=== PATIENT | female | born 1965 | race Caucasian/White ===

== ENCOUNTER → 2024-07-15 15:38 | Outpatient (CLI) | payer BC, SELFPAY ==
--- NOTE | 2024-07-15 15:39 | DI.MG.S_ITS ---
BILATERAL DIGITAL SCREENING MAMMOGRAM 3D/2D WITH CAD: 07/15/2024 CLINICAL: Routine screening. Family history of breast cancer. Comparison is made to exam dated: 11/23/2022 mammogram - outside location. There are scattered areas of fibroglandular density (category b / 25%-50% glandular tissue). Current study was also evaluated with a Computer Aided Detection (CAD) system. There is a possible irregular focal asymmetry in the right breast at 8 o'clock anterior depth. There is an oval focal asymmetry in the left breast at 12 o'clock middle depth. No other significant masses or calcifications are seen in either breast. IMPRESSION: INCOMPLETE: NEED ADDITIONAL IMAGING EVALUATION The possible irregular focal asymmetry in the right breast at 8 o'clock anterior depth is indeterminate. A diagnostic mammogram and ultrasound is recommended. The oval focal asymmetry in the left breast at 12 o'clock middle depth resembles a cyst or a lymph node and is indeterminate. A diagnostic mammogram and ultrasound is recommended. Based on Tyrer-Cuzick model (a risk assessment model), the patient's lifetime risk is 20.8% and her 10 year risk is 7.3%. If a patient has an elevated risk, a more comprehensive evaluation should be considered and/or a referral to a genetic counselor. The [place] [employer], [place] [employer], and NCCN Guidelines advise the consideration of Breast MRI as an adjunct to screening mammography in patients whose Lifetime risk to develop breast cancer is 20% or higher. This exam was interpreted at Station ID: [id number]. NOTE: For mammograms, a report in lay terms will be sent to the patient. Approximately 15% of breast malignancies will not be visualized mammographically. In the management of a palpable breast mass, a negative mammogram must not discourage biopsy of a clinically suspicious lesion. Electronically Signed By: Wali grubbs/bharat:07/16/2024 13:16:37 letter sent: Additional Imaging Needed ACR BI-RADS Category 0: Incomplete: Need Additional Imaging Evaluation
== END ==
LOC: MAMMO 15:39
PROVIDERS: Family Provider Family Medicine; PCP Family Medicine; Referring Provider Family Medicine; Visit Provider Family Medicine
DX: Z12.31 Encounter for screening mammogram for malignant neoplasm of breast (principal); Z80.3 Family history of malignant neoplasm of breast; N64.89 Other specified disorders of breast
CPT/HCPCS: 77063; 77067

== ENCOUNTER → 2024-07-25 09:56 | Outpatient (CLI) | payer BC, SELFPAY ==
[2024-07-25 10:33] LABS: Add Manual Diff / Slide Review NO; Basophils Absolute Auto 100 /uL (0-100); Basophils Percent Auto 1.4 % (0-2); Eosinophils Absolute Auto 200 /uL (0-450); Eosinophils Percent Auto 2.3 % (2-4); Hematocrit 44.2 % (36-46); Hemoglobin 15.2 g/dL (12.0-16.0); Lymphocytes Absolute Auto 2600 /uL (1100-4500); Lymphocytes Percent Auto 31.7 % (25-40); Mean Corpuscular HGB Conc 34.4 % (30-36); Mean Corpuscular Hemoglobin 30.3 PG (26-34); Mean Corpuscular Volume 88.1 fL (80-100); Monocytes Absolute Auto 300 /uL (0-900); Monocytes Percent Auto 4.2 % (3-14); Neutrophils Absolute Auto 4900 /uL (1500-7000); Neutrophils Percent Auto 60.4 % (50-75); Platelet Count 434 X10^3/uL (150-400); Red Blood Cell Count 5.02 X10^6/uL (4.0-5.2); Red Cell Distribution Width 13.1 % (11.6-14.8); White Blood Cell Count 8.1 X10^3/uL (4.5-11.0)
[2024-07-25 10:44] LABS: Hemoglobin A1C% w Est Avg Glu 5.1 % (4.0-6.0)
[2024-07-25 11:02] LABS: Alanine Aminotransferase 78 IU/L (<35); Albumin 4.7 g/dL (3.5-5.0); Albumin Globulin Ratio 1.7 (1.0-2.8); Alkaline Phosphatase 73 U/L (38-126); Aspartate Aminotransferase 49 IU/L (14-36); BUN Creatinine Ratio 16.1 (6-22); Bilirubin Total 0.6 mg/dL (0.2-1.3); Blood Urea Nitrogen 14 mg/dL (7-17); Calcium 9.7 mg/dL (8.4-10.2); Carbon Dioxide 26 mmol/L (22-32); Chloride 105 mmol/L (98-107); Cholesterol 190 mg/dL (140-199); Estimated Glomerular Filt Rate > 60 mL/min (>60); Globulin 2.8 g/dL (1.7-4.1); Glucose 96 mg/dL (70-100); HDL Cholesterol 44 mg/dL (40-60); HEMOLYSIS < 15 (0-50); LDL Cholesterol Calculated 126 mg/dL (<100); Potassium 4.7 mmol/L (3.4-5.1); Sodium 138 mmol/L (137-145); Total Protein 7.5 g/dL (6.3-8.2); Triglycerides 99 mg/dL (35-150)
== END ==
LOC: LAB 09:57
PROVIDERS: Family Provider Family Medicine; PCP Family Medicine; Referring Provider Family Medicine; Visit Provider Family Medicine
DX: D75.839 Thrombocytosis, unspecified (principal); K75.81 Nonalcoholic steatohepatitis (NASH); Z13.220 Encounter for screening for lipoid disorders
CPT/HCPCS: 36415; 80053; 80061; 83036; 85025

== ENCOUNTER 2024-08-01 11:30 | Outpatient (RCR) | payer BC, SELFPAY ==
--- NOTE | 2024-07-08 14:27 | PT.OIE ---
Current Diagnoses Achilles tendinitis, unspecified leg (07/08/24) Past Medical History (Last Updated 05/11/24 @ 18:50 by Lizeth Anna) Diverticular disease (~2016) Family history of breast cancer Menopausal symptom ESCOBAR (nonalcoholic steatohepatitis) (~2016) Obesity (BMI 30.0-34.9) PCOS (polycystic ovarian syndrome) (~1986) Skin cancer (~2022) Thrombocytosis Weight loss counseling, encounter for Past Surgical History (Last Updated 05/11/24 @ 18:50 by Lizeth Anna) Anesthesia History of section (~1994) History of cholecystectomy (~2022) S/P ACL surgery Visit Care Team Role Provider Type Yesenia Waldrop MD Attending Provider Physician Family Provider Primary Care Provider Referring Provider Specialty: Family Practice ZIPPER TRIMMER Address: [address] [place] [address], [facility] Fax: Email: [email or web address] Physical Therapy Initial Evaluation PT-OP-A Visit Information Start: 07/07/24 17:10 Freq: Status: Active Protocol: Document 07/08/24 14:27 [facility]AK (Rec: 07/08/24 15:12 [facility] [id number]) Out-Patient Physical Therapy Visit Information Visit Information Visit Type Initial Evaluation Visit Start Time 14:28 Visit Stop Time 15:20 Visit Number 1 Evaluation Information Evaluation Date 07/08/24 PT-OP-B Current Condition Start: 07/07/24 17:10 Freq: Status: Active Protocol: Document 07/08/24 14:27 [facility]AK (Rec: 07/08/24 15:12 [facility] [id number]) Current Condition History of Current Condition Onset Date 6 months Current Complaints left ankle pain. History of Current Condition gradual onset ankle pain, ok for regular walking though sore. Nagging chronic soreness. HIstory of 5 knee surgeries left, one right. Current activity level; plays golf but has to have ankle brace, now can't play pickle ball, sometimes uses night splint which she previously used for plantar fascitis due to achilles feeling tight. With menopause got frozen shoulder, plantar fascitis. Taking HRT, Metformin for PCOS . Occasionally feels like has band around ankle, though pain usually base of achilles tendon and on heel. Stretches at times, occasionally ices, has not used KT tape. No regular exercise program. Wears good shoes; Barrington's, [place], no orthotics. Prior Treatments and Tests none Treatment Goals Patient/Caregiver Goals Decrease pain, take walks without pain, be able to move quickly and resume pickleball Current Functional Impairments (Reported) Functional Limitations- ADL's painful Functional Limitations- Mobility/Gait painful Functional Limitations- Work/School retired Functional Limitations- Recreation/ cooking; increases pain Hobbies PT-OP-C Subjective Start: 07/07/24 17:10 Freq: Status: Active Protocol: Document 07/08/24 14:27 [facility] (Rec: 07/10/24 17:38 [facility] [id number]) Patient Questionnaires Lower Extremity Functional Scale LEFS Score 1 OP-PT Pain Assessment Pain Assessment Grid Paper Pain Assessment Grid Completed Yes Location left achilles Intensity 8 PT-OP-D Balance Start: 07/07/24 17:10 Freq: Status: Active Protocol: Document 07/08/24 14:27 [facility] (Rec: 07/10/24 17:38 [facility] [id number]) Balance Tests Single Limb Standing Single Limb- Right 20 Single Limb- Left unable PT-OP-G Mobility & Gait Start: 07/07/24 17:10 Freq: Status: Active Protocol: Document 07/08/24 14:27 [facility] (Rec: 07/10/24 17:38 [facility] [id number]) OP Gait Assessment Gait Gait Assistance Required: Independent Assistive Devices Assistive Device None Gait Deviations General Gait Pattern Antalgic PT-OP-H Neuro Start: 07/07/24 17:10 Freq: Status: Active Protocol: Document 07/08/24 14:27 [facility] (Rec: 07/10/24 17:38 [facility] [id number]) Sensation Evaluation Gross Sensation Gross Sensation WNL PT-OP-J Posture/Palpation/Skin Start: 07/07/24 17:10 Freq: Status: Active Protocol: Document 07/08/24 14:27 [facility] (Rec: 07/08/24 15:12 [facility] [id number]) Posture Evaluation Position Standing Head/C-Spine Posture Side Bent Right Foot Arch (L) Low Arch Comments Posture Comments excess pron left, hallux valgus left greater than right PT-OP-K Range of Motion Start: 07/07/24 17:10 Freq: Status: Active Protocol: Document 07/08/24 14:27 [facility] (Rec: 07/10/24 17:38 [facility] [id number]) Knee Goniometric Range of Motion Knee abdirizak Knee ROM WFL Yes Ankle and Foot Goniometric Range of Motion Ankle and Foot Left Dorsiflexion with Knee Flexed 5 Dorsiflexion with Knee Extended 0 Right Active Ankle/Foot ROM WFL Yes Ankle and Foot ROM Limitations ROM Limitations Soft Tissue Tightness,Pain PT-OP-M Strength Start: 07/07/24 17:10 Freq: Status: Active Protocol: Document 07/08/24 14:27 [facility] (Rec: 07/10/24 17:38 [facility] [id number]) Knee Strength Knee Manual Muscle Testing abdirizak Flexion (S2) 5 Normal Extension (L3) 5 Normal Ankle/Foot Strength Ankle and Foot Manual Muscle Testing Left Dorsiflexion (L4) 4+ Good+ Plantarflexion (S1) 4 Good Inversion 4+ Good+ Eversion (S1) 4+ Good+ Comments pain with pf Right Dorsiflexion (L4) 5 Normal Plantarflexion (S1) 5 Normal Inversion 5 Normal Eversion (S1) 5 Normal PT-OP-Q Treatments Start: 07/07/24 17:10 Freq: Status: Active Protocol: Document 07/08/24 14:27 [facility] (Rec: 07/10/24 17:38 [facility] [id number]) Manual Therapy Treatment Taping achilles Treatment Focus pain reduction and support Type of Tape Kinesio Tape Skin Inspection intact Self-Care/Home Management Treatment Education Patient Education Home Exercise Program,Pain Management Other Education issued written HO PT-OP-R Modalities Start: 07/07/24 17:10 Freq: Status: Active Protocol: Document 07/08/24 14:27 [facility] (Rec: 07/13/24 08:42 [facility] [id number]) Hot Pack/Cold Pack Treatment Cold Pack Location achilles Patient Position Hooklying PT-OP-T Assessment and Plan Start: 07/07/24 17:10 Freq: Status: Active Protocol: Document 07/08/24 14:27 [facility] (Rec: 07/08/24 15:12 [facility] [id number]) Physical Therapy Assessment Rehab Potential Rehabilitation Potential Good Evaluation Complexity Number of Personal Factors/Comorbidities 1-2 Number of Body Systems Impaired 3 Clinical Presentation at Evaluation Evolving Impairments Impairments Activity Tolerance,Balance, Gait,Pain,Strength Goals Four Impairment lower extremity functional scale 61% Nursing Home Goal (LTG) Improve LEFS score to at least 85% to allow her to return to prior level of function LTG Duration 09/05/24 Three Impairment palpable thickening achilles midsubstance with tenderness Nursing Home Goal (LTG) Improve soft tissue mobility to WNL LTG Duration 09/05/24 Two Impairment unable to participate in usual recreational activities Nursing Home Goal (LTG) Patient able to resume playing pickleball without an increase in pain LTG Duration 09/05/24 One Impairment unable to stand or walk without left ankle pain Certified Ski Patroller Goal (LTG) Patient will be able to walk on even and uneven ground without pain in left ankle LTG Duration 09/05/24 Assessment Summary Assessment Patient presents to PT with function-limiting pain in her left ankle, specifically the mid substance of her achilles tendon with palpable thickening and tenderness. She is limited in her ability to stand and walk due to pain and she is unable to participate in her typical recreational activities which include pickleball because of pain and feeling like it's going to snap. She has tightness throughout her left calf with decreased ankle dorsiflexion ROM, pain with resisted plantarflexion. We initiated treatment with cold laser to achilles, KT tape, and ice. Instructed in HEP with handout issued. Discussed POC and patient was in agreement. Feel she will benefit from PT to decrease her pain, improve her ROM, strength, and function of her left ankle to allow her to return to her prior level of function. Physical Therapy Plan Frequency and Duration Frequency of Treatment 2x/Week Duration of treatment (weeks) 8 Plan of Care Start Date 07/08/24 Plan of Care End Date 09/05/24 Therapeutic Interventions Therapeutic Interventions Gait Training,Home Exercise Program,Joint Mobilizations, Manual Therapy,Neuromuscular Re-education,Patient/Caregiver Education,Self-Care/Home Management,Soft Tissue Mobilization,Taping, Therapeutic Activities, Therapeutic Exercises Modalities Cold Pack/Ice Massage,Electric Stimulation,Hot Packs, Infrared Therapy,Iontophoresis ,Ultrasound Next Visit Focus/Plan Next Note Type Treatment Note Next Visit Plan Start on recumbant bicycle, discuss heel lift, possible trial. Review HEP and progress as indicated. Cold laser, manual, ice.
--- NOTE | 2024-07-08 14:27 | PT.OPPOC ---
Physical, Occupational & Speech Therapy At [facility] Current Diagnoses Achilles tendinitis, unspecified leg (07/08/24) Visit Care Team Role Provider Type Yesenia Waldrop MD Attending Provider Physician Family Provider Primary Care Provider Referring Provider Specialty: Family Practice TAPE EDGE MACHINE OPERATOR Address: [address] [place] [address], [facility] Fax: Email: [email or web address] Plan Of Care PT-OP-B Current Condition Start: 07/07/24 17:10 Freq: Status: Active Protocol: Document 07/08/24 14:27 [facility]AK (Rec: 07/08/24 15:12 [facility] [id number]) Current Condition History of Current Condition Onset Date 6 months Current Complaints left ankle pain. History of Current Condition gradual onset ankle pain, ok for regular walking though sore. Nagging chronic soreness. HIstory of 5 knee surgeries left, one right. Current activity level; plays golf but has to have ankle brace, now can't play pickle ball, sometimes uses night splint which she previously used for plantar fascitis due to achilles feeling tight. With menopause got frozen shoulder, plantar fascitis. Taking HRT, Metformin for PCOS . Occasionally feels like has band around ankle, though pain usually base of achilles tendon and on heel. Stretches at times, occasionally ices, has not used KT tape. No regular exercise program. Wears good shoes; Barrington's, [place]oka, no orthotics. Prior Treatments and Tests none Treatment Goals Patient/Caregiver Goals Decrease pain, take walks without pain, be able to move quickly and resume pickleball Current Functional Impairments (Reported) Functional Limitations- ADL's painful Functional Limitations- Mobility/Gait painful Functional Limitations- Work/School retired Functional Limitations- Recreation/ cooking; increases pain Hobbies PT-OP-T Assessment and Plan Start: 07/07/24 17:10 Freq: Status: Active Protocol: Document 07/08/24 14:27 [facility]AK (Rec: 07/08/24 15:12 [facility] [id number]) Physical Therapy Assessment Rehab Potential Rehabilitation Potential Good Evaluation Complexity Number of Personal Factors/Comorbidities 1-2 Number of Body Systems Impaired 3 Clinical Presentation at Evaluation Evolving Impairments Impairments Activity Tolerance,Balance, Gait,Pain,Strength Goals Four Impairment lower extremity functional scale 61% [facility]dc Goal (LTG) Improve LEFS score to at least 85% to allow her to return to prior level of function LTG Duration 09/05/24 Three Impairment palpable thickening achilles midsubstance with tenderness Client Manager Large Law Goal (LTG) Improve soft tissue mobility to WNL LTG Duration 09/05/24 Two Impairment unable to participate in usual recreational activities Fdc Goal (LTG) Patient able to resume playing pickleball without an increase in pain LTG Duration 09/05/24 One Impairment unable to stand or walk without left ankle pain Client Manager Large Law Goal (LTG) Patient will be able to walk on even and uneven ground without pain in left ankle LTG Duration 09/05/24 Assessment Summary Assessment Patient presents to PT with function-limiting pain in her left ankle, specifically the mid substance of her achilles tendon with palpable thickening and tenderness. She is limited in her ability to stand and walk due to pain and she is unable to participate in her typical recreational activities which include pickleball because of pain and feeling like it's going to snap. She has tightness throughout her left calf with decreased ankle dorsiflexion ROM, pain with resisted plantarflexion. We initiated treatment with cold laser to achilles, KT tape, and ice. Instructed in HEP with handout issued. Discussed POC and patient was in agreement. Feel she will benefit from PT to decrease her pain, improve her ROM, strength, and function of her left ankle to allow her to return to her prior level of function. Physical Therapy Plan Frequency and Duration Frequency of Treatment 2x/Week Duration of treatment (weeks) 8 Plan of Care Start Date 07/08/24 Plan of Care End Date 09/05/24 Therapeutic Interventions Therapeutic Interventions Gait Training,Home Exercise Program,Joint Mobilizations, Manual Therapy,Neuromuscular Re-education,Patient/Caregiver Education,Self-Care/Home Management,Soft Tissue Mobilization,Taping, Therapeutic Activities, Therapeutic Exercises Modalities Cold Pack/Ice Massage,Electric Stimulation,Hot Packs, Infrared Therapy,Iontophoresis ,Ultrasound Next Visit Focus/Plan Next Note Type Treatment Note Next Visit Plan Start on recumbant bicycle, discuss heel lift, possible trial. Review HEP and progress as indicated. Cold laser, manual, ice. Plan of Care Dates Plan of Care Start Date 07/08/24 Plan of Care End Date 09/05/24 Electronically Signed by: Fany Fox, PT 07/13/24 0843 If you are in agreement with this Plan of Care, please return a signed and dated copy. I have reviewed this Plan of Care and certify that the skilled therapy services above are required to meet the patient?s needs. Physician Signature Date Printed Name and Credentials Clinical Instructor Signature Printed Name and Credentials
--- NOTE | 2024-07-14 16:59 | PT.OTN ---
Current Diagnoses Achilles tendinitis, unspecified leg (07/14/24) Physical Therapy Treatment Note PT-OP-A Visit Information Start: 07/07/24 17:10 Freq: Status: Active Protocol: Document 07/14/24 10:35 [facility] (Rec: 07/14/24 11:17 [facility] [id number]) Out-Patient Physical Therapy Visit Information Visit Information Visit Type Treatment Note Visit Start Time 10:45 Visit Stop Time 11:30 Evaluation Information Evaluation Date 07/08/24 PT-OP-B Current Condition Start: 07/07/24 17:10 Freq: Status: Active Protocol: Document 07/14/24 10:35 [facility] (Rec: 07/14/24 11:17 [facility] [id number]) Current Condition History of Current Condition Onset Date 6 months Current Complaints left ankle pain. History of Current Condition gradual onset ankle pain, ok for regular walking though sore. Nagging chronic soreness. HIstory of 5 knee surgeries left, one right. Current activity level; plays golf but has to have ankle brace, now can't play pickle ball, sometimes uses night splint which she previously used for plantar fascitis due to achilles feeling tight. With menopause got frozen shoulder, plantar fascitis. Taking HRT, Metformin for PCOS . Occasionally feels like has band around ankle, though pain usually base of achilles tendon and on heel. Stretches at times, occasionally ices, has not used KT tape. No regular exercise program. Wears good shoes; Barrington's, [place], no orthotics. Prior Treatments and Tests none PT-OP-C Subjective Start: 07/07/24 17:10 Freq: Status: Active Protocol: Document 07/14/24 10:35 [facility] (Rec: 07/14/24 11:17 [facility] [id number]) OP-PT Subjective Patient Comments Patient Comments Relief of pain after first PT session, lasted for 3 days, then realized where PT pointed out defect is where it tore. Got some toe spacers, felt fine on left, on right foot didn't due to prior toe fracture. Attempted own retaping. Did self massage with muscle gun on calf PT-OP-D Balance Start: 07/07/24 17:10 Freq: Status: Active Protocol: Document 07/08/24 14:27 [facility] (Rec: 07/10/24 17:38 [facility] [id number]) Balance Tests Single Limb Standing Single Limb- Right 20 Single Limb- Left unable PT-OP-G Mobility & Gait Start: 07/07/24 17:10 Freq: Status: Active Protocol: Document 07/08/24 14:27 [facility] (Rec: 07/10/24 17:38 [facility] [id number]) OP Gait Assessment Gait Gait Assistance Required: Independent Assistive Devices Assistive Device None Gait Deviations General Gait Pattern Antalgic PT-OP-H Neuro Start: 07/07/24 17:10 Freq: Status: Active Protocol: Document 07/08/24 14:27 [facility] (Rec: 07/10/24 17:38 [facility] [id number]) Sensation Evaluation Gross Sensation Gross Sensation WNL PT-OP-J Posture/Palpation/Skin Start: 07/07/24 17:10 Freq: Status: Active Protocol: Document 07/08/24 14:27 [facility] (Rec: 07/08/24 15:12 [facility] [id number]) Posture Evaluation Position Standing Head/C-Spine Posture Side Bent Right Foot Arch (L) Low Arch Comments Posture Comments excess pron left, hallux valgus left greater than right PT-OP-K Range of Motion Start: 07/07/24 17:10 Freq: Status: Active Protocol: Document 07/08/24 14:27 [facility] (Rec: 07/10/24 17:38 [facility] [id number]) Knee Goniometric Range of Motion Knee abdirizak Knee ROM WFL Yes Ankle and Foot Goniometric Range of Motion Ankle and Foot Left Dorsiflexion with Knee Flexed 5 Dorsiflexion with Knee Extended 0 Right Active Ankle/Foot ROM WFL Yes Ankle and Foot ROM Limitations ROM Limitations Soft Tissue Tightness,Pain PT-OP-M Strength Start: 07/07/24 17:10 Freq: Status: Active Protocol: Document 07/08/24 14:27 [facility] (Rec: 07/10/24 17:38 [facility] [id number]) Knee Strength Knee Manual Muscle Testing abdirizak Flexion (S2) 5 Normal Extension (L3) 5 Normal Ankle/Foot Strength Ankle and Foot Manual Muscle Testing Left Dorsiflexion (L4) 4+ Good+ Plantarflexion (S1) 4 Good Inversion 4+ Good+ Eversion (S1) 4+ Good+ Comments pain with pf Right Dorsiflexion (L4) 5 Normal Plantarflexion (S1) 5 Normal Inversion 5 Normal Eversion (S1) 5 Normal PT-OP-Q Treatments Start: 07/07/24 17:10 Freq: Status: Active Protocol: Document 07/14/24 10:35 [facility] (Rec: 07/14/24 11:17 [facility] [id number]) Cardio Equipment Bicycle (Upright) Duration (Minutes) 5 Resistance 6 Seat Position 6 Gym Equipment Shuttle Balance chains red Details bal and weight shift fwd/bck, side to side Therapeutic Exercises Sitting Exercises ankle TB 4 ways Reps/Minutes 5x ea Comments issued L2 TB and written HO Standing Exercises tandem stand Reps/Minutes 30 ea Comments issued written HO for HEP SLS Reps/Minutes R x 30, left 6, 7, 8 Comments isued written HO for HEP gastroc and soleus stretch Reps/Minutes 2x30 Comments issued written HO for HEP Manual Therapy Treatment Consent Patient gave verbal consent for manual Yes treatment Soft Tissue Mobilization achilles Body Location L Mobilization Type Cross-Friction Intensity/Depth mod Taping achilles Treatment Focus pain reduction and support Type of Tape Kinesio Tape Skin Inspection intact Comments 3 I strips: one starting heel and extend distal to MTP's, prox to prox calf with 25% stretch second at arch, 3rd at distal achilles area of pain horizontal ankle Self-Care/Home Management Treatment Education Patient Education Home Exercise Program,Pain Management Other Education sit to stand LE alignment PT-OP-R Modalities Start: 07/07/24 17:10 Freq: Status: Active Protocol: Document 07/14/24 10:35 [facility] (Rec: 07/14/24 11:17 [facility] [id number]) Hot Pack/Cold Pack Treatment Cold Pack Location achilles Patient Position Hooklying Infrared Treatment Treatment left achilles Body Position Prone Continuous/Pulsed Continuous Program or Protocal chronic PT-OP-T Assessment and Plan Start: 07/07/24 17:10 Freq: Status: Active Protocol: Document 07/14/24 10:35 [facility] (Rec: 07/14/24 11:17 [facility] [id number]) Physical Therapy Assessment Goals Four Impairment lower extremity functional scale 61% Long-Term Goal (LTG) Improve LEFS score to at least 85% to allow her to return to prior level of function LTG Duration 09/05/24 Three Impairment palpable thickening achilles midsubstance with tenderness Long-Term Goal (LTG) Improve soft tissue mobility to WNL LTG Duration 09/05/24 Two Impairment unable to participate in usual recreational activities Mail Officer Goal (LTG) Patient able to resume playing pickleball without an increase in pain LTG Duration 09/05/24 One Impairment unable to stand or walk without left ankle pain Long-Term Goal (LTG) Patient will be able to walk on even and uneven ground without pain in left ankle LTG Duration 09/05/24 Assessment Summary Assessment Good response to first session with relief of pain x 3 days. Progress ther ex and issued written HO, patient denied inc pain. Cont with cold laser, manual, ice with good tolerance. Physical Therapy Plan Frequency and Duration Frequency of Treatment 2x/Week Duration of treatment (weeks) 8 Plan of Care Start Date 07/08/24 Plan of Care End Date 09/05/24 Therapeutic Interventions Therapeutic Interventions Gait Training,Home Exercise Program,Joint Mobilizations, Manual Therapy,Neuromuscular Re-education,Patient/Caregiver Education,Self-Care/Home Management,Soft Tissue Mobilization,Taping, Therapeutic Activities, Therapeutic Exercises Modalities Cold Pack/Ice Massage,Electric Stimulation,Hot Packs, Infrared Therapy,Iontophoresis ,Ultrasound Next Visit Focus/Plan Next Note Type Treatment Note Next Visit Plan Assess response to today's session, progress ther ex as tolerated. Consider heel lift . Continue cold laser, manual , ice.
--- NOTE | 2024-07-21 14:51 | PT.OTN ---
Current Diagnoses Achilles tendinitis, unspecified leg (07/21/24) Physical Therapy Treatment Note PT-OP-A Visit Information Start: 07/07/24 17:10 Freq: Status: Active Protocol: Document 07/21/24 13:43 [facility] (Rec: 07/21/24 14:35 [facility] [id number]) Out-Patient Physical Therapy Visit Information Visit Information Visit Type Treatment Note Visit Start Time 13:44 Visit Stop Time 14:42 Visit Number 3 Evaluation Information Evaluation Date 07/08/24 PT-OP-B Current Condition Start: 07/07/24 17:10 Freq: Status: Active Protocol: Document 07/21/24 13:43 [facility] (Rec: 07/21/24 14:35 [facility] [id number]) Current Condition History of Current Condition Onset Date 6 months Current Complaints left ankle pain. History of Current Condition gradual onset ankle pain, ok for regular walking though sore. Nagging chronic soreness. HIstory of 5 knee surgeries left, one right. Current activity level; plays golf but has to have ankle brace, now can't play pickle ball, sometimes uses night splint which she previously used for plantar fascitis due to achilles feeling tight. With menopause got frozen shoulder, plantar fascitis. Taking HRT, Metformin for PCOS . Occasionally feels like has band around ankle, though pain usually base of achilles tendon and on heel. Stretches at times, occasionally ices, has not used KT tape. No regular exercise program. Wears good shoes; [employer], [place], no orthotics. Prior Treatments and Tests none PT-OP-C Subjective Start: 07/07/24 17:10 Freq: Status: Active Protocol: Document 07/21/24 13:43 [facility] (Rec: 07/21/24 14:35 [facility] [id number]) OP-PT Subjective Patient Comments Patient Comments Reports increase in pain/ soreness left ankle after PT, also did self massage, thinks good hurt 3-410, 2/10 now. PT-OP-D Balance Start: 07/07/24 17:10 Freq: Status: Active Protocol: Document 07/08/24 14:27 [facility] (Rec: 07/10/24 17:38 [facility] [id number]) Balance Tests Single Limb Standing Single Limb- Right 20 Single Limb- Left unable PT-OP-G Mobility & Gait Start: 07/07/24 17:10 Freq: Status: Active Protocol: Document 07/08/24 14:27 [facility] (Rec: 07/10/24 17:38 [facility] [id number]) OP Gait Assessment Gait Gait Assistance Required: Independent Assistive Devices Assistive Device None Gait Deviations General Gait Pattern Antalgic PT-OP-H Neuro Start: 07/07/24 17:10 Freq: Status: Active Protocol: Document 07/08/24 14:27 [facility] (Rec: 07/10/24 17:38 [facility] [id number]) Sensation Evaluation Gross Sensation Gross Sensation WNL PT-OP-J Posture/Palpation/Skin Start: 07/07/24 17:10 Freq: Status: Active Protocol: Document 07/08/24 14:27 [facility] (Rec: 07/08/24 15:12 [facility] [id number]) Posture Evaluation Position Standing Head/C-Spine Posture Side Bent Right Foot Arch (L) Low Arch Comments Posture Comments excess pron left, hallux valgus left greater than right PT-OP-K Range of Motion Start: 07/07/24 17:10 Freq: Status: Active Protocol: Document 07/08/24 14:27 [facility] (Rec: 07/10/24 17:38 [facility] [id number]) Knee Goniometric Range of Motion Knee abdirizak Knee ROM WFL Yes Ankle and Foot Goniometric Range of Motion Ankle and Foot Left Dorsiflexion with Knee Flexed 5 Dorsiflexion with Knee Extended 0 Right Active Ankle/Foot ROM WFL Yes Ankle and Foot ROM Limitations ROM Limitations Soft Tissue Tightness,Pain PT-OP-M Strength Start: 07/07/24 17:10 Freq: Status: Active Protocol: Document 07/08/24 14:27 [facility] (Rec: 07/10/24 17:38 [facility] [id number]) Knee Strength Knee Manual Muscle Testing abdirizak Flexion (S2) 5 Normal Extension (L3) 5 Normal Ankle/Foot Strength Ankle and Foot Manual Muscle Testing Left Dorsiflexion (L4) 4+ Good+ Plantarflexion (S1) 4 Good Inversion 4+ Good+ Eversion (S1) 4+ Good+ Comments pain with pf Right Dorsiflexion (L4) 5 Normal Plantarflexion (S1) 5 Normal Inversion 5 Normal Eversion (S1) 5 Normal PT-OP-Q Treatments Start: 07/07/24 17:10 Freq: Status: Active Protocol: Document 07/21/24 13:43 [facility] (Rec: 07/21/24 14:35 [facility] [id number]) Cardio Equipment Bicycle (Upright) Duration (Minutes) 5 Resistance 6 Seat Position 6 Gym Equipment Shuttle Balance chains red Details bal and weight shift fwd/bck, side to side Therapeutic Exercises Sitting Exercises ankle TB 4 ways Sitting Exercise Name HEP Standing Exercises tandem stand Equipment Used floor, black foam Reps/Minutes 30 ea x 2 Comments issued written HO for HEP SLS Equipment Used floor, black foam Reps/Minutes 3x, gastroc and soleus stretch Equipment Used RAD, wall, floor Reps/Minutes 2x30 Manual Therapy Treatment Soft Tissue Mobilization left calf Mobilization Type Myofascial Release,Strumming Intensity/Depth Moderate Body Position Prone achilles Body Location L Mobilization Type Cross-Friction Intensity/Depth mod Body Position Prone Taping achilles Treatment Focus pain reduction and support Type of Tape Kinesio Tape Skin Inspection intact Comments 3 I strips: one starting heel and extend distal to MTP's, prox to prox calf with 25% stretch second at arch, 3rd at distal achilles area of pain horizontal ankle Self-Care/Home Management Treatment Education Other Education encouraged trial adjustable heel lifts; on both sides PT-OP-R Modalities Start: 07/07/24 17:10 Freq: Status: Active Protocol: Document 07/21/24 13:43 [facility] (Rec: 07/21/24 14:51 [facility] [id number]) Hot Pack/Cold Pack Treatment Cold Pack Location achilles Patient Position Hooklying PT-OP-T Assessment and Plan Start: 07/07/24 17:10 Freq: Status: Active Protocol: Document 07/21/24 13:43 [facility] (Rec: 07/21/24 14:35 [facility] [id number]) Physical Therapy Assessment Impairments Impairments Activity Tolerance,Balance, Gait,Pain,Strength Goals Four Impairment lower extremity functional scale 61% Group Home Goal (LTG) Improve LEFS score to at least 85% to allow her to return to prior level of function LTG Duration 09/05/24 Three Impairment palpable thickening achilles midsubstance with tenderness Group Home Goal (LTG) Improve soft tissue mobility to WNL LTG Duration 09/05/24 Two Impairment unable to participate in usual recreational activities Rn Camp Goal (LTG) Patient able to resume playing pickleball without an increase in pain LTG Duration 09/05/24 One Impairment unable to stand or walk without left ankle pain Rn Camp Goal (LTG) Patient will be able to walk on even and uneven ground without pain in left ankle LTG Duration 09/05/24 Assessment Summary Assessment Good respnse to manual to left calf, multiple areas of soft tissue tightness. REviewed calf and achilles stretching options with patient demonstrating good understanding. Recommended adjustable heel lifts to patient. Cont laser and KT tape, ice at end of treatment. Physical Therapy Plan Frequency and Duration Frequency of Treatment 2x/Week Duration of treatment (weeks) 8 Plan of Care Start Date 07/08/24 Plan of Care End Date 09/05/24 Therapeutic Interventions Therapeutic Interventions Gait Training,Home Exercise Program,Joint Mobilizations, Manual Therapy,Neuromuscular Re-education,Patient/Caregiver Education,Self-Care/Home Management,Soft Tissue Mobilization,Taping, Therapeutic Activities, Therapeutic Exercises Modalities Cold Pack/Ice Massage,Electric Stimulation,Hot Packs, Infrared Therapy,Iontophoresis ,Ultrasound Next Visit Focus/Plan Next Note Type Treatment Note Next Visit Plan assess response last session, use of heel lift if obtains. Continue laser, manual, ther ex as tolerated.
--- NOTE | 2024-07-25 12:33 | PT.OTN ---
Current Diagnoses Achilles tendinitis, unspecified leg (07/25/24) Physical Therapy Treatment Note PT-OP-A Visit Information Start: 07/07/24 17:10 Freq: Status: Active Protocol: Document 07/25/24 10:35 [facility] (Rec: 07/25/24 12:32 [facility] [id number]) Out-Patient Physical Therapy Visit Information Visit Information Visit Type Treatment Note Visit Start Time 10:46 Visit Stop Time 11:30 Visit Number 4 Number of SLEEPING CAR CONDUCTOR Visits 1 Evaluation Information Evaluation Date 07/08/24 PT-OP-B Current Condition Start: 07/07/24 17:10 Freq: Status: Active Protocol: Document 07/21/24 13:43 [facility] (Rec: 07/21/24 14:35 [facility] [id number]) Current Condition History of Current Condition Onset Date 6 months Current Complaints left ankle pain. History of Current Condition gradual onset ankle pain, ok for regular walking though sore. Nagging chronic soreness. HIstory of 5 knee surgeries left, one right. Current activity level; plays golf but has to have ankle brace, now can't play pickle ball, sometimes uses night splint which she previously used for plantar fascitis due to achilles feeling tight. With menopause got frozen shoulder, plantar fascitis. Taking HRT, Metformin for PCOS . Occasionally feels like has band around ankle, though pain usually base of achilles tendon and on heel. Stretches at times, occasionally ices, has not used KT tape. No regular exercise program. Wears good shoes; [employer], [place], no orthotics. Prior Treatments and Tests none PT-OP-C Subjective Start: 07/07/24 17:10 Freq: Status: Active Protocol: Document 07/25/24 10:35 [facility] (Rec: 07/25/24 12:32 [facility] [id number]) OP-PT Subjective Patient Comments Patient Comments Patient reports she is the same, comments going up on toes is still painful, and post walking pain persists. Patient rates. Pain 2/10 with bilateral heel raise L distal calf/achilles. with light UE use. PT-OP-D Balance Start: 07/07/24 17:10 Freq: Status: Active Protocol: Document 07/08/24 14:27 [facility] (Rec: 07/10/24 17:38 [facility] [id number]) Balance Tests Single Limb Standing Single Limb- Right 20 Single Limb- Left unable PT-OP-G Mobility & Gait Start: 07/07/24 17:10 Freq: Status: Active Protocol: Document 07/08/24 14:[address] [facility] (Rec: 07/10/24 17:[address] [facility] [id number]) OP Gait Assessment Gait Gait Assistance Required: Independent Assistive Devices Assistive Device None Gait Deviations General Gait Pattern Antalgic PT-OP-H Neuro Start: 07/07/24 17:10 Freq: Status: Active Protocol: Document 07/08/24 14:[address] [facility] (Rec: 07/10/24 17:[address] [facility] [id number]) Sensation Evaluation Gross Sensation Gross Sensation WNL PT-OP-J Posture/Palpation/Skin Start: 07/07/24 17:10 Freq: Status: Active Protocol: Document 07/08/24 14:[address] [facility] (Rec: 07/08/24 15:[address] [facility] [id number]) Posture Evaluation Position Standing Head/C-Spine Posture Side Bent Right Foot Arch (L) Low Arch Comments Posture Comments excess pron left, hallux valgus left greater than right PT-OP-K Range of Motion Start: 07/07/24 17:10 Freq: Status: Active Protocol: Document 07/08/24 14:[address] [facility] (Rec: 07/10/24 17:[address] [facility] [id number]) Knee Goniometric Range of Motion Knee abdirizak Knee ROM WFL Yes Ankle and Foot Goniometric Range of Motion Ankle and Foot Left Dorsiflexion with Knee Flexed 5 Dorsiflexion with Knee Extended 0 Right Active Ankle/Foot ROM WFL Yes Ankle and Foot ROM Limitations ROM Limitations Soft Tissue Tightness,Pain PT-OP-M Strength Start: 07/07/24 17:10 Freq: Status: Active Protocol: Document 07/08/24 14:[address] [facility] (Rec: 07/10/24 17:[address] [facility] [id number]) Knee Strength Knee Manual Muscle Testing abdirizak Flexion (S2) 5 Normal Extension (L3) 5 Normal Ankle/Foot Strength Ankle and Foot Manual Muscle Testing Left Dorsiflexion (L4) 4+ Good+ Plantarflexion (S1) 4 Good Inversion 4+ Good+ Eversion (S1) 4+ Good+ Comments pain with pf Right Dorsiflexion (L4) 5 Normal Plantarflexion (S1) 5 Normal Inversion 5 Normal Eversion (S1) 5 Normal PT-OP-Q Treatments Start: 07/07/24 17:10 Freq: Status: Active Protocol: Document 07/25/24 10:35 [facility] (Rec: 07/25/24 12:32 AB [id number]) Therapeutic Exercises Sitting Exercises ankle TB 4 ways Sitting Exercise Name HEP Resistance AROM X 15 level one band X 10 level 2, PF with band X15 Comments verbal cues, monitored for pain Standing Exercises gastroc and soleus stretch Equipment Used RAD, wall, floor Reps/Minutes 2x60 Comments post manual Manual Therapy Treatment Consent Patient gave verbal consent for manual Yes treatment Soft Tissue Mobilization left calf Mobilization Type Cross-Friction,Myofascial Release,Strumming Intensity/Depth Moderate Body Position Prone achilles Body Location L Mobilization Type Cross-Friction Intensity/Depth mod Body Position Prone Taping achilles Treatment Focus pain reduction and support Type of Tape Kinesio Tape Skin Inspection intact Comments 3 I strips: one starting heel and extend distal to MTP's, prox to prox calf with 25% stretch second at arch, 3rd at distal achilles area of pain horizontal ankle PT-OP-R Modalities Start: 07/07/24 17:10 Freq: Status: Active Protocol: Document 07/25/24 10:35 [facility] (Rec: 07/25/24 12:32 AB [id number]) Infrared Treatment Treatment left achilles Body Position Prone Continuous/Pulsed Continuous Program or Protocal chronic Comments X4 hours PT-OP-T Assessment and Plan Start: 07/07/24 17:10 Freq: Status: Active Protocol: Document 07/25/24 10:35 [facility] (Rec: 07/25/24 12:32 [facility] [id number]) Physical Therapy Assessment Goals Four Impairment lower extremity functional scale 61% Retirement Goal (LTG) Improve LEFS score to at least 85% to allow her to return to prior level of function LTG Duration 09/05/24 Three Impairment palpable thickening achilles midsubstance with tenderness Fixed Interest Dealer Goal (LTG) Improve soft tissue mobility to WNL LTG Duration 09/05/24 Two Impairment unable to participate in usual recreational activities Retirement Goal (LTG) Patient able to resume playing pickleball without an increase in pain LTG Duration 09/05/24 One Impairment unable to stand or walk without left ankle pain Retirement Goal (LTG) Patient will be able to walk on even and uneven ground without pain in left ankle LTG Duration 09/05/24 Assessment Summary Assessment Good response to manual with patient rating pain 1/10 L achilles area with bilateral Heel raise with light UE support. Physical Therapy Plan Frequency and Duration Frequency of Treatment 2x/Week Duration of treatment (weeks) 8 Plan of Care Start Date 07/08/24 Plan of Care End Date 09/05/24 Next Visit Focus/Plan Next Note Type Treatment Note Next Visit Plan assess response last session, use of heel lift if obtains. Continue laser, manual, ther ex as tolerated.
--- NOTE | 2024-07-30 15:28 | PT.OTN ---
Current Diagnoses Achilles tendinitis, unspecified leg (07/30/24) Physical Therapy Treatment Note PT-OP-A Visit Information Start: 07/07/24 17:10 Freq: Status: Active Protocol: Document 07/30/24 11:33 SAK (Rec: 07/30/24 12:26 [facility] [id number]) Out-Patient Physical Therapy Visit Information Visit Information Visit Type Treatment Note Visit Start Time 11:34 Visit Stop Time 12:25 Visit Number 5 Number of CREDIT DIRECTOR Visits 0 Evaluation Information Evaluation Date 07/08/24 PT-OP-B Current Condition Start: 07/07/24 17:10 Freq: Status: Active Protocol: Document 07/30/24 11:33 SAK (Rec: 07/30/24 12: [facility] [id number]) Current Condition History of Current Condition Onset Date 6 months Current Complaints left ankle pain. History of Current Condition gradual onset ankle pain, ok for regular walking though sore. Nagging chronic soreness. HIstory of 5 knee surgeries left, one right. Current activity level; plays golf but has to have ankle brace, now can't play pickle ball, sometimes uses night splint which she previously used for plantar fascitis due to achilles feeling tight. With menopause got frozen shoulder, plantar fascitis. Taking HRT, Metformin for PCOS . Occasionally feels like has band around ankle, though pain usually base of achilles tendon and on heel. Stretches at times, occasionally ices, has not used KT tape. No regular exercise program. Wears good shoes; [employer], [place]oka, no orthotics. Prior Treatments and Tests none PT-OP-C Subjective Start: 07/07/24 17:10 Freq: Status: Active Protocol: Document 07/30/24 11:33 [facility] (Rec: 07/30/24 12:26 [facility] [id number]) OP-PT Subjective Patient Comments Patient Comments My foot is being weird. Was walking barefoot into bathroom and felt zinging pain up whole foot and ankle and ball of foot. At rest pain constant at heel 2/10. After walking the ball of her foot hurts. can't tolerate heel raise right now due to ball of foot pain. Hasn't gotten heel lifts yet. Hasn't been icing. PT-OP-D Balance Start: 07/07/24 17:10 Freq: Status: Active Protocol: Document 07/08/24 14:27 [facility] (Rec: 07/10/24 17:38 [facility] [id number]) Balance Tests Single Limb Standing Single Limb- Right 20 Single Limb- Left unable PT-OP-G Mobility & Gait Start: 07/07/24 17:10 Freq: Status: Active Protocol: Document 07/08/24 14:27 [facility] (Rec: 07/10/24 17:38 [facility] [id number]) OP Gait Assessment Gait Gait Assistance Required: Independent Assistive Devices Assistive Device None Gait Deviations General Gait Pattern Antalgic PT-OP-H Neuro Start: 07/07/24 17:10 Freq: Status: Active Protocol: Document 07/08/24 14:27 [facility] (Rec: 07/10/24 17:38 [facility] [id number]) Sensation Evaluation Gross Sensation Gross Sensation WNL PT-OP-J Posture/Palpation/Skin Start: 07/07/24 17:10 Freq: Status: Active Protocol: Document 07/08/24 14:27 [facility] (Rec: 07/08/24 15:12 [facility] [id number]) Posture Evaluation Position Standing Head/C-Spine Posture Side Bent Right Foot Arch (L) Low Arch Comments Posture Comments excess pron left, hallux valgus left greater than right PT-OP-K Range of Motion Start: 07/07/24 17:10 Freq: Status: Active Protocol: Document 07/08/24 14:27 [facility] (Rec: 07/10/24 17:38 [facility] [id number]) Knee Goniometric Range of Motion Knee abdirizak Knee ROM WFL Yes Ankle and Foot Goniometric Range of Motion Ankle and Foot Left Dorsiflexion with Knee Flexed 5 Dorsiflexion with Knee Extended 0 Right Active Ankle/Foot ROM WFL Yes Ankle and Foot ROM Limitations ROM Limitations Soft Tissue Tightness,Pain PT-OP-M Strength Start: 07/07/24 17:10 Freq: Status: Active Protocol: Document 07/08/24 14:27 [facility] (Rec: 07/10/24 17:38 [facility] [id number]) Knee Strength Knee Manual Muscle Testing abdirizak Flexion (S2) 5 Normal Extension (L3) 5 Normal Ankle/Foot Strength Ankle and Foot Manual Muscle Testing Left Dorsiflexion (L4) 4+ Good+ Plantarflexion (S1) 4 Good Inversion 4+ Good+ Eversion (S1) 4+ Good+ Comments pain with pf Right Dorsiflexion (L4) 5 Normal Plantarflexion (S1) 5 Normal Inversion 5 Normal Eversion (S1) 5 Normal PT-OP-Q Treatments Start: 07/07/24 17:10 Freq: Status: Active Protocol: Document 07/30/24 11:33 [facility] (Rec: 07/30/24 15:28 [facility] [id number]) Therapeutic Exercises Sitting Exercises ankle TB 4 ways Sitting Exercise Name HEP Resistance AROM X 15 level one band X 10 level 2, PF with band X15 Comments verbal cues, monitored for pain Standing Exercises mini heel raises Standing Exercise Name cued eccentric lowering, slow Reps/Minutes 5x weight shift Reps/Minutes 5x Comments gentle activation calf/ achilles gastroc and soleus stretch Standing Exercise Name reviewed Manual Therapy Treatment Consent Patient gave verbal consent for manual Yes treatment Soft Tissue Mobilization left calf Mobilization Type Cross-Friction,Myofascial Release,Strumming Intensity/Depth Moderate Body Position Prone achilles Body Location L Mobilization Type Cross-Friction Intensity/Depth mod Body Position Prone Taping achilles Treatment Focus pain reduction and support Type of Tape Kinesio Tape Skin Inspection intact Comments 3 I strips: one starting heel and extend distal to MTP's, prox to prox calf with 25% stretch second at arch, 3rd at distal achilles area of pain horizontal ankle Other Other Manual Treatments 1/8 heel lifts cut out of cork for abdirizak shoes, put under shoe insert. Self-Care/Home Management Treatment Education Other Education Encouraged gradually increasing time wearing heel lifts PT-OP-R Modalities Start: 07/07/24 17:10 Freq: Status: Active Protocol: Document 07/30/24 11:33 [facility] (Rec: 07/30/24 15:28 [facility] [id number]) Hot Pack/Cold Pack Treatment Cold Pack Location achilles Patient Position Hooklying Infrared Treatment Treatment left achilles Body Position Prone Continuous/Pulsed Continuous Program or Protocal chronic Comments X4 hours PT-OP-T Assessment and Plan Start: 07/07/24 17:10 Freq: Status: Active Protocol: Document 07/30/24 11:33 [facility] (Rec: 07/30/24 12:26 [facility] [id number]) Physical Therapy Assessment Goals Four Impairment lower extremity functional scale 61% [employer] Architect Goal (LTG) Improve LEFS score to at least 85% to allow her to return to prior level of function LTG Duration 09/05/24 Three Impairment palpable thickening achilles midsubstance with tenderness Correction Goal (LTG) Improve soft tissue mobility to WNL LTG Duration 09/05/24 Two Impairment unable to participate in usual recreational activities [employer] Architect Goal (LTG) Patient able to resume playing pickleball without an increase in pain LTG Duration 09/05/24 One Impairment unable to stand or walk without left ankle pain Correction Goal (LTG) Patient will be able to walk on even and uneven ground without pain in left ankle LTG Duration 09/05/24 Assessment Summary Assessment Increased pain today. Patient educated importance of foot alignment and with her bunion affects biomechanics whole foot. Hasn't tried wearing foot spacer during the day as recommended. Trial KT to great toe. HEP modified either sitting heel raise or modfy to weight shifts forward to more gently activate achilles, or mini heel lifts with eccentric lowering (not bouncing as patient reports she has been doing). Encouraged continued TB ex. Trial BAPS board today L3. Instructed in resume icing. Physical Therapy Plan Frequency and Duration Frequency of Treatment 2x/Week Duration of treatment (weeks) 8 Plan of Care Start Date 07/08/24 Plan of Care End Date 09/05/24 Therapeutic Interventions Therapeutic Interventions Gait Training,Home Exercise Program,Joint Mobilizations, Manual Therapy,Neuromuscular Re-education,Patient/Caregiver Education,Self-Care/Home Management,Soft Tissue Mobilization,Taping, Therapeutic Activities, Therapeutic Exercises Modalities Cold Pack/Ice Massage,Electric Stimulation,Hot Packs, Infrared Therapy,Iontophoresis ,Ultrasound Next Visit Focus/Plan Next Note Type Treatment Note Next Visit Plan assess response last session, use of heel lift, KT to great toe, modified HEP. Continue laser, manual, ther ex as tolerated.
--- NOTE | 2024-08-01 12:52 | PT.OTN ---
Current Diagnoses Achilles tendinitis, unspecified leg (08/01/24) Physical Therapy Treatment Note PT-OP-A Visit Information Start: 07/07/24 17:10 Freq: Status: Active Protocol: Document 08/01/24 10:38 AB (Rec: 08/01/24 12:25 [facility] [id number]) Out-Patient Physical Therapy Visit Information Visit Information Visit Type Treatment Note Visit Start Time 11:32 Visit Stop Time 12:19 Visit Number 6 Number of SPRING SETTER Visits 1 Evaluation Information Evaluation Date 07/08/24 PT-OP-B Current Condition Start: 07/07/24 17:10 Freq: Status: Active Protocol: Document 07/30/24 11:33 SAK (Rec: 07/30/24 12:26 SAK [id number]) Current Condition History of Current Condition Onset Date 6 months Current Complaints left ankle pain. History of Current Condition gradual onset ankle pain, ok for regular walking though sore. Nagging chronic soreness. HIstory of 5 knee surgeries left, one right. Current activity level; plays golf but has to have ankle brace, now can't play pickle ball, sometimes uses night splint which she previously used for plantar fascitis due to achilles feeling tight. With menopause got frozen shoulder, plantar fascitis. Taking HRT, Metformin for PCOS . Occasionally feels like has band around ankle, though pain usually base of achilles tendon and on heel. Stretches at times, occasionally ices, has not used KT tape. No regular exercise program. Wears good shoes; [employer], [place], no orthotics. Prior Treatments and Tests none PT-OP-C Subjective Start: 07/07/24 17:10 Freq: Status: Active Protocol: Document 08/01/24 10:38 [facility] (Rec: 08/01/24 12:25 AB [id number]) OP-PT Subjective Patient Comments Patient Comments Patient reports she is a little better. Patient requests retaping post manual and laser. Patient reports wearing the lift and not walking bearfoot. Patient reports exercises are going well at home. Patient rates pain 0/10 ambulating into session. PT-OP-D Balance Start: 07/07/24 17:10 Freq: Status: Active Protocol: Document 07/08/24 14:27 SAK (Rec: 07/10/24 17:38 SAK [id number]) Balance Tests Single Limb Standing Single Limb- Right 20 Single Limb- Left unable PT-OP-G Mobility & Gait Start: 07/07/24 17:10 Freq: Status: Active Protocol: Document 07/08/24 14:27 [facility] (Rec: 07/10/24 17:38 [facility] [id number]) OP Gait Assessment Gait Gait Assistance Required: Independent Assistive Devices Assistive Device None Gait Deviations General Gait Pattern Antalgic PT-OP-H Neuro Start: 07/07/24 17:10 Freq: Status: Active Protocol: Document 07/08/24 14:27 [facility] (Rec: 07/10/24 17:38 [facility] [id number]) Sensation Evaluation Gross Sensation Gross Sensation WNL PT-OP-J Posture/Palpation/Skin Start: 07/07/24 17:10 Freq: Status: Active Protocol: Document 07/08/24 14:27 [facility] (Rec: 07/08/24 15:12 [facility] [id number]) Posture Evaluation Position Standing Head/C-Spine Posture Side Bent Right Foot Arch (L) Low Arch Comments Posture Comments excess pron left, hallux valgus left greater than right PT-OP-K Range of Motion Start: 07/07/24 17:10 Freq: Status: Active Protocol: Document 07/08/24 14:27 [facility] (Rec: 07/10/24 17:38 [facility] [id number]) Knee Goniometric Range of Motion Knee abdirizak Knee ROM WFL Yes Ankle and Foot Goniometric Range of Motion Ankle and Foot Left Dorsiflexion with Knee Flexed 5 Dorsiflexion with Knee Extended 0 Right Active Ankle/Foot ROM WFL Yes Ankle and Foot ROM Limitations ROM Limitations Soft Tissue Tightness,Pain PT-OP-M Strength Start: 07/07/24 17:10 Freq: Status: Active Protocol: Document 07/08/24 14:27 [facility] (Rec: 07/10/24 17:38 [facility] [id number]) Knee Strength Knee Manual Muscle Testing abdirizak Flexion (S2) 5 Normal Extension (L3) 5 Normal Ankle/Foot Strength Ankle and Foot Manual Muscle Testing Left Dorsiflexion (L4) 4+ Good+ Plantarflexion (S1) 4 Good Inversion 4+ Good+ Eversion (S1) 4+ Good+ Comments pain with pf Right Dorsiflexion (L4) 5 Normal Plantarflexion (S1) 5 Normal Inversion 5 Normal Eversion (S1) 5 Normal PT-OP-Q Treatments Start: 07/07/24 17:10 Freq: Status: Active Protocol: Document 08/01/24 10:38 AB (Rec: 08/01/24 12:25 AB [id number]) Therapeutic Exercises Prone Exercises AROM DF Reps/Minutes X15 Comments Verbal cues Sitting Exercises ankle TB 4 ways Sitting Exercise Name HEP Resistance AROM X 15 level one band X 10 level 2, PF with level 2 and 3band X15 Reps/Minutes X15 each then X 4 with level 3 band for PF Comments verbal cues, monitored for pain Standing Exercises mini squat Standing Exercise Name Verbal and visual cues for very minimal squat Reps/Minutes X12 then X 5 with back to ball on wall Comments verbal cues for very minimal squat gastroc and soleus stretch Standing Exercise Name standing at wall Comments Pre squat and pre band ankle ext Manual Therapy Treatment Soft Tissue Mobilization left calf Mobilization Type Cross-Friction,Myofascial Release,Strumming Intensity/Depth Moderate Body Position Prone achilles Body Location L Mobilization Type Cross-Friction Intensity/Depth mod Body Position Prone Taping achilles Treatment Focus pain reduction and support Type of Tape Kinesio Tape Skin Inspection intact Comments 3 I strips: one starting heel and extend distal to MTP's, prox to prox calf with 25% stretch second at arch, 3rd at distal achilles area of pain horizontal ankle PT-OP-R Modalities Start: 07/07/24 17:10 Freq: Status: Active Protocol: Document 08/01/24 10:38 AB (Rec: 08/01/24 12:25 AB [id number]) Hot Pack/Cold Pack Treatment Cold Pack Location achilles Patient Position Hooklying PT-OP-T Assessment and Plan Start: 07/07/24 17:10 Freq: Status: Active Protocol: Document 08/01/24 10:38 AB (Rec: 08/01/24 12:25 AB [id number]) Physical Therapy Assessment Goals Four Impairment lower extremity functional scale 61% [employer] Machine Offbearer Goal (LTG) Improve LEFS score to at least 85% to allow her to return to prior level of function LTG Duration 09/05/24 Three Impairment palpable thickening achilles midsubstance with tenderness Nursing Home Goal (LTG) Improve soft tissue mobility to WNL LTG Duration 09/05/24 Two Impairment unable to participate in usual recreational activities Nursing Home Goal (LTG) Patient able to resume playing pickleball without an increase in pain LTG Duration 09/05/24 One Impairment unable to stand or walk without left ankle pain Compound Coating Machine Offbearer Goal (LTG) Patient will be able to walk on even and uneven ground without pain in left ankle LTG Duration 09/05/24 Assessment Summary Assessment Patient with increased knee pain 3-09/25 with mini squat, pain back to same level of pain pre session for knees per patient, increased cues for dec depth, hip hinge. Possibly trial of very small step up step back for body over ankle mvt if unable to perform squat to a depth that does not increase pain. Physical Therapy Plan Frequency and Duration Frequency of Treatment 2x/Week Duration of treatment (weeks) 8 Plan of Care Start Date 07/08/24 Plan of Care End Date 09/05/24 Next Visit Focus/Plan Next Note Type Treatment Note Next Visit Plan KT to great toe, Continue ( laser Goggles are cracked awaiting new goggles), manual, ther ex as tolerated.
--- NOTE | 2024-12-15 09:03 | PT.OPDS ---
Current Diagnoses Achilles tendinitis, unspecified leg (08/01/24) Visit Care Team Role Provider Type Yesenia Waldrop MD Attending Provider Physician Family Provider Primary Care Provider Referring Provider Specialty: Family Practice [employer] Address: [facility] [place], [address] Fax: Email: [email or web address] Visit Number Visit Number 6 Discharge Summary PT-OP-B Current Condition Start: 07/07/24 17:10 Freq: Status: Active Protocol: Document 07/30/24 11:33 SAK (Rec: 07/30/24 12:26 SAK [id number]) Current Condition History of Current Condition Onset Date 6 months Current Complaints left ankle pain. History of Current gradual onset ankle pain, ok for regular walking though Condition sore. Nagging chronic soreness. HIstory of 5 knee surgeries left, one right. Current activity level; plays golf but has to have ankle brace, now can't play pickle ball, sometimes uses night splint which she previously used for plantar fascitis due to achilles feeling tight. With menopause got frozen shoulder, plantar fascitis. Taking HRT, Metformin for PCOS. Occasionally feels like has band around ankle, though pain usually base of achilles tendon and on heel. Stretches at times, occasionally ices, has not used KT tape. No regular exercise program. Wears good shoes; [employer], [place], no orthotics. Prior Treatments and none Tests PT-OP-C Subjective Start: 07/07/24 17:10 Freq: Status: Active Protocol: Document 08/01/24 10:38 AB (Rec: 08/01/24 12:25 AB [id number]) OP-PT Subjective Patient Comments Patient Comments Patient reports she is a little better. Patient requests retaping post manual and laser. Patient reports wearing the lift and not walking bearfoot. Patient reports exercises are going well at home. Patient rates pain 0/10 ambulating into session. PT-OP-D Balance Start: 07/07/24 17:10 Freq: Status: Active Protocol: Document 07/08/24 14:27 SAK (Rec: 07/10/24 17:38 SAK [id number]) Balance Tests Single Limb Standing Single Limb- Right 20 Single Limb- Left unable PT-OP-G Mobility & Gait Start: 07/07/24 17:10 Freq: Status: Active Protocol: Document 07/08/24 14:27 [facility] (Rec: 07/10/24 17:38 [facility] [id number]) OP Gait Assessment Gait Gait Assistance Independent Required: Assistive Devices Assistive Device None Gait Deviations General Gait Pattern Antalgic PT-OP-H Neuro Start: 07/07/24 17:10 Freq: Status: Active Protocol: Document 07/08/24 14:27 [facility] (Rec: 07/10/24 17:38 [facility] [id number]) Sensation Evaluation Gross Sensation Gross Sensation WNL PT-OP-J Posture/Palpation/Skin Start: 07/07/24 17:10 Freq: Status: Active Protocol: Document 07/08/24 14:27 [facility] (Rec: 07/08/24 15:12 [facility] [id number]) Posture Evaluation Position Standing Head/C-Spine Posture Side Bent Right Foot Arch (L) Low Arch Comments Posture Comments excess pron left, hallux valgus left greater than right PT-OP-K Range of Motion Start: 07/07/24 17:10 Freq: Status: Active Protocol: Document 07/08/24 14:27 [facility] (Rec: 07/10/24 17:38 [facility] [id number]) Knee Goniometric Range of Motion Knee abdirizak Knee ROM WFL Yes Ankle and Foot Goniometric Range of Motion Ankle and Foot Left Dorsiflexion with 5 Knee Flexed Dorsiflexion with 0 Knee Extended Right Active Ankle/Foot ROM WFL Yes Ankle and Foot ROM Limitations ROM Limitations Soft Tissue Tightness,Pain PT-OP-M Strength Start: 07/07/24 17:10 Freq: Status: Active Protocol: Document 07/08/24 14:27 [facility] (Rec: 07/10/24 17:38 [facility] [id number]) Knee Strength Knee Manual Muscle Testing abdirizak Flexion (S2) 5 Normal Extension (L3) 5 Normal Ankle/Foot Strength Ankle and Foot Manual Muscle Testing Left Dorsiflexion (L4) 4+ Good+ Plantarflexion (S1) 4 Good Inversion 4+ Good+ Eversion (S1) 4+ Good+ Comments pain with pf Right Dorsiflexion (L4) 5 Normal Plantarflexion (S1) 5 Normal Inversion 5 Normal Eversion (S1) 5 Normal PT-OP-T Assessment and Plan Start: 07/07/24 17:10 Freq: Status: Active Protocol: Document 12/15/24 09:03 SIVA (Rec: 12/15/24 09:03 SAK Laptop) Physical Therapy Plan Discharge Physical Therapy Discharge Reasons No Longer Attending PT
== END 2024-12-22 10:03 | disposition home or self-care (01) ==
LOC: PHYS 11:30
PROVIDERS: Family Provider Family Medicine; PCP Family Medicine; Referring Provider Family Medicine; Visit Provider Family Medicine
DX: M76.60 Achilles tendinitis, unspecified leg (principal)
CPT/HCPCS: 36415; 80053; 80061; 83036; 85025; 97110; 97140; 97162; 97535

== ENCOUNTER → 2024-08-13 11:38 | Outpatient (CLI) | payer BC, SELFPAY ==
--- NOTE | 2024-08-13 11:39 | DI.US.S_ITS ---
LIMITED ULTRASOUND OF RIGHT BREAST: 08/13/2024 CLINICAL: Patient returns today to evaluate a focal asymmetry in the right breast. Comparison is made to exams dated: 08/13/2024 mammogram, 07/15/2024 mammogram - [facility], and 11/23/2022 mammogram - outside location. Color flow and real-time ultrasound of the right breast 9 o'clock region were performed. Billings scale images of the real-time examination were reviewed. There is a 0.6 cm x 0.3 cm x 0.3 cm cluster of complicated cysts in the right breast at 10 o'clock anterior depth 5 cm from the nipple. This cluster of complicated cysts is hypoechoic with internal echoes. This correlates with mammography findings. Color flow imaging demonstrates that there is no vascularity present. IMPRESSION: PROBABLY BENIGN The 0.6 cm x 0.3 cm x 0.3 cm cluster of complicated cysts in the right breast is probably benign. A follow-up right mammogram and an ultrasound in 6 months is recommended to demonstrate stability. Findings and recommendations were conveyed to the patient during today's evaluation. This exam was interpreted at Station ID: [id number]. Electronically Signed By: Ifeanyi Sanchez M.D. aty/:08/13/2024 13:20:00 letter sent: Followup Recommended ACR BI-RADS Category 3: Probably Benign
--- NOTE | 2024-08-13 11:39 | DI.US.S_ITS ---
LIMITED ULTRASOUND OF LEFT BREAST AND AXILLA: 08/13/2024 CLINICAL: Patient returns today to evaluate a focal asymmetry in the left breast. Comparison is made to exams dated: 08/13/2024 mammogram, 07/15/2024 mammogram - [facility], and 11/23/2022 mammogram - outside location. Color flow and real-time ultrasound of the left breast 11-12 o'clock, and axilla regions were performed. Billings scale images of the real-time examination were reviewed. There are two adjacent oval cysts in the left breast superior medial quadrant middle depth. These oval cysts display internal echoes. These likely correlate with mammography findings. Color flow imaging demonstrates that there is no vascularity present. No significant abnormalities were seen sonographically in the left axilla. IMPRESSION: PROBABLY BENIGN The two adjacent oval cysts in the left breast are consistent with complicated cysts and are probably benign. A follow-up left mammogram and an ultrasound in 6 months is recommended to demonstrate stability. Findings and recommendations were conveyed to the patient during today's evaluation. This exam was interpreted at Station ID: [id number]. Electronically Signed By: Ifeanyi jacob/:08/13/2024 13:18:27 Entry: ka - 08/14/2024 10:13:44 ACR BI-RADS Category 3: Probably Benign
--- NOTE | 2024-09-10 12:09 | DI.MG.S_ITS ---
Patient Name: BHAVNA MORENO date: 1965 Sex: F Attending Physician: Bnejie Indications: Date: 08/13/2024 12:43 At the request of: JAIME MCFARLAND Procedure: MM diagnostic mammo BI BILATERAL DIGITAL DIAGNOSTIC MAMMOGRAM 3D/2D WITH ADDITIONAL VIEWS: 08/13/2024 CLINICAL: Additional evaluation requested from prior study. Comparison is made to exams dated: 07/15/2024 mammogram - [facility], 11/23/2022 mammogram, and 11/15/2022 mammogram - outside location. There are scattered areas of fibroglandular density (category b / 25%-50% glandular tissue). There is a possible irregular focal asymmetry in the right breast at 9 o'clock anterior depth. This is not seen in additional views. This is less prominent and decreased in size. There is a 0.6 cm oval focal asymmetry in the left breast at 12 o'clock middle depth. This is seen in additional views. No other significant masses or calcifications are seen in either breast. IMPRESSION: INCOMPLETE: NEED ADDITIONAL IMAGING EVALUATION The possible irregular focal asymmetry in the right breast at 9 o'clock anterior depth resembles fibroglandular tissue and is indeterminate. An ultrasound is recommended for further evaluation and is scheduled to immediately follow this examination. The 0.6 cm oval focal asymmetry in the left breast at 12 o'clock middle depth resembles a cyst or a lymph node and is indeterminate. An ultrasound is recommended for further evaluation and is scheduled to immediately follow this examination. Continued Report - Page 2 of 2 Patient Name: BHAVNA MORENO date: 1965 Sex: F Attending Physician: Benjie Indications: Date: 08/13/2024 12:43 At the request of: JAIME MCFARLAND Procedure: MM diagnostic mammo BI Based on Tyrer-Cuzick model (a risk assessment model), the patient's lifetime risk is 20.8% and her 10 year risk is 7.3%. If a patient has an elevated risk, a more comprehensive evaluation should be considered and/or a referral to a genetic counselor. The [place] [employer], [place] [employer], and NCCN Guidelines advise the consideration of Breast MRI as an adjunct to screening mammography in patients whose Lifetime risk to develop breast cancer is 20% or higher. This exam was interpreted at Station ID: [id number]. NOTE: For mammograms, a report in lay terms will be sent to the patient. Approximately 15% of breast malignancies will not be visualized mammographically. In the management of a palpable breast mass, a negative mammogram must not discourage biopsy of a clinically suspicious lesion. Electronically Signed By: Ifeanyi Sanchez M.D. aty/:08/13/2024 12:43:22 letter sent: Additional Imaging Needed ACR BI-RADS Category 0: Incomplete: Need Additional Imaging Evaluation
== END ==
PROVIDERS: Family Provider Family Medicine; PCP Family Medicine; Referring Provider Family Medicine; Visit Provider Family Medicine
DX: R92.8 Other abnormal and inconclusive findings on diagnostic imaging of breast (principal); N60.02 Solitary cyst of left breast; N60.01 Solitary cyst of right breast
CPT/HCPCS: 76642; 77066; G0279

== ENCOUNTER → 2024-10-15 09:44 | Outpatient (CLI) | payer BC, SELFPAY ==
[2024-10-15 10:52] LABS: Appearance Urine UA Clear; Color Urine UA Orange
[2024-10-15 10:53] LABS: Urine Volume 10mL (spun)
[2024-10-15 10:58] LABS: Bacteria Urine Many (>30); Culture Indicated Urine Specimen Cultured; RBC Urine None Seen (0-5/HPF); Squamous Epithelial Cell Urine None Seen (0-5/HPF); WBC Urine 10-30/HPF (0-5/HPF)
[2024-10-15 12:10] LABS: Alanine Aminotransferase 30 IU/L (<35); Albumin 4.6 g/dL (3.5-5.0); Albumin Globulin Ratio 1.8 (1.0-2.8); Alkaline Phosphatase 63 U/L (38-126); Aspartate Aminotransferase 26 IU/L (14-36); BUN Creatinine Ratio 15.9 (6-22); Bilirubin Total 0.6 mg/dL (0.2-1.3); Blood Urea Nitrogen 13 mg/dL (7-17); Calcium 9.9 mg/dL (8.4-10.2); Carbon Dioxide 28 mmol/L (22-32); Chloride 102 mmol/L (98-107); Estimated Glomerular Filt Rate > 60 mL/min (>60); Globulin 2.6 g/dL (1.7-4.1); Glucose 87 mg/dL (70-99); HEMOLYSIS < 15 (0-50); Sodium 139 mmol/L (137-145); Total Protein 7.2 g/dL (6.3-8.2)
== END ==
PROVIDERS: Family Provider Family Medicine; PCP Family Medicine; Referring Provider Family Medicine; Visit Provider Family Medicine
DX: R79.89 Other specified abnormal findings of blood chemistry (principal); R30.0 Dysuria
CPT/HCPCS: 36415; 80053; 81001; 87077; 87086; 87186

== ENCOUNTER → 2024-10-27 10:03 | Outpatient (CLI) | payer BC, SELFPAY ==
--- NOTE | 2024-10-27 10:05 | DI.RAD.S_ITS ---
PROCEDURE: XR ANKLE LT MIN 3V INDICATIONS: Left ankle injury, twisted TECHNIQUE: 3 views of the ankle were acquired. COMPARISON: None. FINDINGS: Bones: No fractures or dislocations. Well corticated osseous fragment inferiorly adjacent to the distal medial malleolus likely represents sequelae of remote trauma. Ankle mortise is normally aligned. No suspicious bony lesions. Retrocalcaneal enthesopathy. Soft tissues: No tibiotalar joint effusion. Achilles tendon appears normal. IMPRESSION: No acute bony abnormality or significant effusion. Likely sequelae of remote trauma at the medial tibiotalar articular margin. Dictated by: Artem Olson M.D. on 10/27/2024 at 23:26 Approved by: Artem Olson M.D. on 10/27/2024 at 23:48
== END ==
PROVIDERS: Family Provider Family Medicine; PCP Family Medicine; Referring Provider Nurse Practitioner Family; Visit Provider Nurse Practitioner Family
DX: S93.402A Sprain of unspecified ligament of left ankle, initial encounter (principal); X58.XXXA Exposure to other specified factors, initial encounter
CPT/HCPCS: 73610

== ENCOUNTER → 2024-11-04 09:15 | Outpatient (CLI) | payer BC, SELFPAY | PROVIDERS: Family Provider Family Medicine; PCP Family Medicine; Visit Provider Nurse Practitioner Family | DX: R30.0 Dysuria (principal); R10.2 Pelvic and perineal pain | CPT/HCPCS: 87086; 87210 ==

== ENCOUNTER → 2024-12-05 12:04 | Outpatient (CLI) | payer BC, SELFPAY ==
--- NOTE | 2024-12-05 12:05 | DI.US.S_ITS ---
PROCEDURE: US PELVIC COMPLETE INDICATIONS: Suprapubic tenderness TECHNIQUE: Real-time scanning was performed of the pelvic organs, with image documentation. Additional endovaginal scanning was necessary due to incomplete visualization of the adnexal and endometrial structures by transabdominal scanning. COMPARISON: None. FINDINGS: Uterus: Uterus is retroflexed and normal in size at 4.8 x 3.3 x 3.6 cm. The myometrium is heterogenous with small microcalcifications.. The endometrium measures 3 mm combined thickness. Ovaries: Left ovary measures 1.8 x 2.0 x 1.0 cm, 2 cc. Less than 12 follicles noted. Right ovary not visualized Other: No pathologic free abdominal or pelvic fluid. IMPRESSION: Right ovary not visualized Slightly atrophic uterus retroflexed Approved by: Tong Weinstein M.D. on 12/05/2024 at 15:51
== END ==
LOC: US 12:04
PROVIDERS: Family Provider Family Medicine; PCP Family Medicine; Referring Provider Nurse Practitioner Family; Visit Provider Nurse Practitioner Family
DX: R10.819 Abdominal tenderness, unspecified site (principal)
CPT/HCPCS: 76856; 93975

== ENCOUNTER → 2025-03-03 09:20 | Outpatient (CLI) | payer BC, SELFPAY ==
--- NOTE | 2025-03-03 09:22 | DI.MG.S_ITS ---
MM diagnostic mammo BI, US breast BI limited: 03/03/2025 BI-RADS: 3 CLINICAL: 59-year old female for bilateral diagnostic mammogram and bilateral diagnostic breast ultrasound that is a follow-up to ultrasound, right on 08/13/2024. Tyrer- Cuzick lifetime risk of 22.9%. Current reported family history of breast cancer: paternal grandmother and sister. The patient reports testing negative for BRCA gene mutation. PRIOR EXAMS 08/13/2024, 07/15/2024, 11/23/2022, 11/15/2022. MAMMOGRAPHY TECHNIQUE: 2D and 3D (tomosynthesis) digital mammographic views obtained, with additional images as needed for full coverage. Current study was also evaluated with a Computer Aided Detection (CAD) system. ULTRASOUND TECHNIQUE: TARGETED Bilateral Breast Ultrasound: Real-time ultrasound exam was performed focused to area of clinical and/or imaging concern. Real-time alfaro scale and color doppler imaging of the area of clinical interest was performed with image documentation. DENSITY C. The breasts are heterogeneously dense, which may obscure small masses. MAMMOGRAPHY FINDINGS Right (finding-3): CC only, Central, Posterior depth, measuring 0.9cm: There is an asymmetry seen only on one view. This appears more prominent compared to the prior exams and partially effaces on the spot compression views. Right (finding-1): Outer at 9:00, Anterior depth: Previously described focal asymmetry is no longer visualized on the present examination. Left (finding-2): Upper at 12:00, Anterior depth, measuring 0.6cm: There is a stable focal asymmetry present. This focal asymmetry is oval and circumscribed. ULTRASOUND FINDINGS Right (finding-1): Outer at 9:00, 5 cm from nipple: The previously seen cyst is no longer visualized. No suspicious sonographic finding present. Right (finding-3): Upper at 12:00: There is no sonographic correlate for the mammographic finding. No suspicious sonographic finding present. Left (finding-2): Upper Inner at 11:00, 6 cm from nipple, measuring 0.5 x 0.4 x 0.5 cm - previously measuring (08/13/2024) 0.5 x 0.5 x 0.5 cm: Correlating with findings on mammogram and prior imaging concern there is a complicated cyst that is unchanged in size and appearance. Left: Upper at 12:00, 6 cm from nipple, measuring 0.4 x 0.3 x 0.4 cm - previously measuring (08/13/2024) 0.5 x 0.3 x 0.5 cm: Correlating with prior imaging concern there is a complicated cyst that is unchanged in size and appearance. IMPRESSION: Right (Asymmetry): CC only, Central, Posterior depth, measuring 0.9cm * Probably Benign. Left (Complicated Cyst): Upper Inner at 11:00, 6 cm from nipple, measuring 0.5 x 0.4 x 0.5 cm - previously measuring (08/13/2024) 0.5 x 0.5 x 0.5 cm * Probably Benign. Left (Complicated Cyst): Upper at 12:00, 6 cm from nipple, measuring 0.4 x 0.3 x 0.4 cm - previously measuring (08/13/2024) 0.5 x 0.3 x 0.5 cm * Probably Benign. RECOMMENDATIONS Right: CC only, Central, Posterior depth * Six month followup with diagnostic mammography. Left: Upper Inner at 11:00, 6 cm from nipple * Six month followup with diagnostic mammography and diagnostic ultrasound. Left: Upper at 12:00, 6 cm from nipple * Six month followup with diagnostic ultrasound. COMMENTS: Findings and recommendations were conveyed to the patient during today's evaluation. This patient has an elevated lifetime risk for breast cancer of over 20%. Recommend consideration for annual screening breast MRI as an adjunct to screening mammography. OVERALL ASSESSMENT CATEGORY BI-RADS-3: Probably Benign. ELECTRONICALLY SIGNED: Rosa Vega M.D. on 03/03/2025 at 04:09:33 PM PT Interpreting Station ID: [id number]
== END ==
PROVIDERS: Family Provider Family Medicine; PCP Family Medicine; Referring Provider Family Medicine; Visit Provider Family Medicine
DX: R92.8 Other abnormal and inconclusive findings on diagnostic imaging of breast (principal); R92.333 Mammographic heterogeneous density, bilateral breasts; N64.89 Other specified disorders of breast; N60.02 Solitary cyst of left breast
CPT/HCPCS: 76642; 77066; G0279

== ENCOUNTER → 2025-03-30 08:38 | Outpatient (CLI) | payer BC, SELFPAY ==
[2025-03-30 09:59] LABS: Alanine Aminotransferase 15 IU/L (<35); Albumin 4.6 g/dL (3.5-5.0); Albumin Globulin Ratio 1.6 (1.0-2.8); Alkaline Phosphatase 65 U/L (38-126); Blood Urea Nitrogen 16 mg/dL (7-17); Calcium 9.8 mg/dL (8.4-10.2); Carbon Dioxide 27 mmol/L (22-32); Chloride 104 mmol/L (98-107); Cholesterol 170 mg/dL (140-199); Estimated Glomerular Filt Rate > 60 mL/min (>60); Globulin 2.9 g/dL (1.7-4.1); Glucose 85 mg/dL (70-99); HDL Cholesterol 53 mg/dL (40-60); HEMOLYSIS < 15 (0-50); Potassium 4.4 mmol/L (3.4-5.1); Sodium 138 mmol/L (137-145); Total Protein 7.5 g/dL (6.3-8.2); Triglycerides 82 mg/dL (35-150)
== END ==
PROVIDERS: Family Provider Family Medicine; PCP Family Medicine; Referring Provider Family Medicine; Visit Provider Family Medicine
DX: R79.89 Other specified abnormal findings of blood chemistry (principal); E66.811 Obesity, class 1; R74.02 Elevation of levels of lactic acid dehydrogenase [LDH]
CPT/HCPCS: 36415; 80053; 80061